=== PATIENT | female | born 1950 | race Caucasian/White ===

== ENCOUNTER 2016-08-21 19:34 | Emergency (ER) | payer MEDICARE, MEDICAID ==
[~2016-08-21] VITALS: Ht 154.9 cm; Wt 113.4 kg
[~2016-08-21 19:34] MED LIST: ASPI-605 PO; CARB100T2 PO; CELE200C PO; CLON1TAB PO; FLUO20CA36 PO
--- NOTE | 2016-08-21 19:40 | NUR ---
To bed 7 a 66 yo female bibself with c/o "shaking all over body (from the inside) w/ difficulty swallowing x2-3hrs today s/p argument with pharmacy assistant, patient reports she has history of MS. Patient is aaox4, ambulatory, no s/s of acute distress noted. Breathing even and unlabored. Nondiaphoretic. Gowned. Initiated comfort measures. Awaiting for er md mo.
--- NOTE | 2016-08-21 19:48 | NUR ---
Dr Manrique at bedside.
[2016-08-21] MEDS ORDERED: methylPREDNISolone SOD SUCC 40 MG/ML VIAL ONE (19:56)
[2016-08-21] MEDS ORDERED: methylPREDNISolone SOD SUCC 40 MG/ML VIAL IV ONE (20:00)
--- NOTE | 2016-08-21 20:00 | NUR ---
started a saline lock on the lac g20, blood drawn and sent to lab.
[2016-08-21 20:08] LABS: APPEARANCE,URINE Clear (CLEAR); BILIRUBIN,URINE Negative (NEGATIVE); BLOOD, URINE Negative Ery/uL (NEGATIVE); COLOR,URINE Yellow (YELLOW); KETONES,URINE Negative (NEGATIVE); LEUKOCYTE ESTERASE ,URINE Negative (NEGATIVE); NITRITE, URINE Negative (NEGATIVE); PROTEIN,URINE Negative (NEGATIVE); UGLUCOSE Negative (NEGATIVE); UROBILINOGEN,URINE 0.2 EU/dL (0.2)
[2016-08-21 20:10] LABS: BASOPHILS % (AUTO) 0.3 % (0.0-2.0); EOSINOPHILS % (AUTO) 0.3 % (0.0-6.0); HEMATOCRIT 41 % (33-45); HEMOGLOBIN 13.9 g/dL (11.5-14.8); LYMPHOCYTES # (AUTO) 2.1 /CMM (0.8-4.8); LYMPHOCYTES % (AUTO) 32.5 % (20.0-44.0); MEAN CORPUSCULAR HEMOGLOBIN 30 PG (26.0-33.0); MEAN CORPUSCULAR HGB CONC 34 g/dl (31.0-36.0); MEAN CORPUSCULAR VOLUME 89 fL (82-100); MONOCYTES # (AUTO) 0.4 /CMM (0.1-1.30); MONOCYTES % (AUTO) 6.7 % (2.0-12.0); NEUTROPHILS # (AUTO) 4.1 /CMM (1.8-8.9); NEUTROPHILS % (AUTO) 60.2 % (43.0-81.0); PLATELET COUNT (AUTO) 262 /CMM (150-450); RDW COEFFICIENT OF VARIATION 13.7 (11.5-15.0); RED BLOOD CELL COUNT(AUTO) 4.61 MIL/uL (4.0-5.2); WHITE BLOOD COUNT (AUTO) 6.6 K/uL (4.3-11.0)
[2016-08-21 20:14] LABS: CALCIUM, SERUM 9.7 mg/dL (8.5-10.1); CREATININE 0.7 mg/dL (0.6-1.3); POTASSIUM 4.1 mmol/L (3.5-5.1)
--- NOTE | 2016-08-21 20:15 | NUR ---
cxr at bedside.
--- NOTE | 2016-08-21 21:15 | NUR ---
Patient discharged to home in stable condition. Written and verbal after care instructions given. Patient verbalizes understanding of instruction. Patient is ambulatory with steady gait. IV removed. Catheter intact and site benign. Pressure and 4x4 applied to site. No bleeding noted.
[2016-08-21 21:16] VITALS: BP 150/76
== END 2016-08-21 21:17 | disposition home or self-care (01) ==
LOC: ER 19:36
DX: R53.1 Weakness (principal); M79.7 Fibromyalgia; E11.9 Type 2 diabetes mellitus without complications; G35 Multiple sclerosis; F17.200 Nicotine dependence, unspecified, uncomplicated; Z79.82 Long term (current) use of aspirin
CPT/HCPCS: 36415; 71010; 80048; 81001; 85025; 93005; 96374; 99285; A4606; J2920; 81000-TC; Z7610

== ENCOUNTER 2017-03-06 16:40 | Emergency (ER) | payer MEDICARE, MEDICAID ==
[~2017-03-06] VITALS: Ht 162.6 cm; Wt 81.6 kg
[2017-03-06 16:52] VITALS: BP 141/77
== END 2017-03-06 17:14 | disposition home or self-care (01) ==
LOC: ER 16:41
DX: L03.115 Cellulitis of right lower limb (principal); E11.9 Type 2 diabetes mellitus without complications; M79.7 Fibromyalgia; F17.200 Nicotine dependence, unspecified, uncomplicated; G35 Multiple sclerosis; R01.1 Cardiac murmur, unspecified; Z79.82 Long term (current) use of aspirin
CPT/HCPCS: 99283; A4606; Z7610

== ENCOUNTER 2017-10-18 05:15 | Emergency (ER) | payer MEDICARE, OTHER ==
[~2017-10-18] VITALS: Ht 165.1 cm; Wt 102.1 kg
[2017-10-18 05:34] VITALS: BP 125/80
--- NOTE | 2017-10-18 07:08 | NUR ---
REPORT GIVEN TO FRANCOISE CABRERA AND SEBASTIÁN FOR FLO.
== END 2017-10-18 07:29 | disposition home or self-care (01) ==
LOC: ER 05:15
DX: S00.531A Contusion of lip, initial encounter (principal); S00.83XA Contusion of other part of head, initial encounter; S80.211A Abrasion, right knee, initial encounter; M79.7 Fibromyalgia; R01.1 Cardiac murmur, unspecified; G35 Multiple sclerosis; E11.9 Type 2 diabetes mellitus without complications; F10.10 Alcohol abuse, uncomplicated; F17.200 Nicotine dependence, unspecified, uncomplicated; Z79.82 Long term (current) use of aspirin; W01.0XXA Fall on same level from slipping, tripping and stumbling without subsequent striking against object, initial encounter; Y93.01 Activity, walking, marching and hiking; Y92.480 Sidewalk as the place of occurrence of the external cause; Y99.8 Other external cause status
CPT/HCPCS: 70150-TC; A4606; Z7610

== ENCOUNTER 2018-11-27 11:01 | Emergency (ER) | payer MEDICARE, OTHER ==
[~2018-11-27] VITALS: Ht 157.5 cm; Wt 103.4 kg
[2018-11-27 11:26] VITALS: BP 128/68
[2018-11-27] MEDS ORDERED: TDAP [DIPH/PERTUSSIS/TET] 0.5 ML VIAL IM ONE ×2 (11:33→12:00)
== END 2018-11-27 11:48 | disposition home or self-care (01) ==
LOC: ER 11:03
DX: S60.511A Abrasion of right hand, initial encounter (principal); G35 Multiple sclerosis; E11.9 Type 2 diabetes mellitus without complications; M79.7 Fibromyalgia; F17.200 Nicotine dependence, unspecified, uncomplicated; Z90.89 Acquired absence of other organs; Z98.890 Other specified postprocedural states; Z79.899 Other long term (current) drug therapy; Z79.82 Long term (current) use of aspirin; W45.8XXA Other foreign body or object entering through skin, initial encounter; Y93.89 Activity, other specified; Y92.512 Supermarket, store or market as the place of occurrence of the external cause; Y99.8 Other external cause status
CPT/HCPCS: 90715

== ENCOUNTER 2025-03-11 10:15 | Emergency (ER) | payer MEDICARE, OTHER ==
[~2025-03-11] VITALS: Ht 157.5 cm; Wt 85.3 kg
[2025-03-11 10:43] VITALS: TEMP 98.3
[2025-03-11 12:03] VITALS: BP 129/85; O2SAT 98
== END 2025-03-11 12:03 | disposition home or self-care (01) ==
LOC: ER 10:17
DX: S90.31XA Contusion of right foot, initial encounter (principal); S90.121A Contusion of right lesser toe(s) without damage to nail, initial encounter; E11.9 Type 2 diabetes mellitus without complications; F17.200 Nicotine dependence, unspecified, uncomplicated; M79.7 Fibromyalgia; Z90.49 Acquired absence of other specified parts of digestive tract; Z79.899 Other long term (current) drug therapy; Z79.82 Long term (current) use of aspirin; Z79.1 Long term (current) use of non-steroidal anti-inflammatories (NSAID); W20.8XXA Other cause of strike by thrown, projected or falling object, initial encounter; Y93.89 Activity, other specified; Y92.89 Other specified places as the place of occurrence of the external cause; Y99.8 Other external cause status
CPT/HCPCS: 73564-TC; 73630-TC